=== PATIENT | female | born 1945 | race Caucasian/White ===

== ENCOUNTER → 2018-11-09 | Outpatient (CLI) | payer MEDICARE, OTHER ==
--- NOTE | 2018-11-09 11:09 | Diagnostic Imaging Report ---
EXAM: DXA BONE DENSITY INDICATIONS: SCREENING FOR OSTEOPORSIS COMPARISON: None. FINDINGS: Proximal left femur bone mineral density (BMD) (g/cm2):1.007 Femur T-score (standard deviation relative to young adult mean BMD): 0.5 Femur Z-score (standard deviation relative to age-matched control group):2.3 Lumbar bone mineral density (BMD) (g/cm2):1.090 Lumbar T-score (standard deviation relative to young adult mean BMD): 0.4 Lumbar Z-score (standard deviation relative to age-matched control group):2.8 Change since prior exam (%): Femur:Not applicable. Spine:Not applicable. Change since oldest prior exam (%): Femur:Not applicable. Spine:Not applicable. CONCLUSION: 1. Bone mineral density in the left femur is classified as normal. Fracture risk is not increased. 2. Bone mineral density in the spine is classified as normal. Fracture risk is not increased. World Health Organization Classification: *The Z-score is provided for informational purposes. The T-score is preferable for clinical decisions. When comparing exams, a change of >4% is considered statistically significant. SUGGESTED RECOMMENDATIONS: Normal & Osteopenia:Consideration should be given to use of calcium supplementation, daily multiple vitamins and adequate exercise, as preventive measures against osteoporosis, if clinically indicated. Osteoporosis & Severe Osteoporosis:In addition to the above, consideration should be given to medical therapy against osteoporosis, if clinically indicated. Av Richards D.O. Dictated by: Av Richards D.O. on 11/09/2018 at 11:19 Electronically approved by: Av Richards D.O. on 11/09/2018 at 11:19
== END ==
LOC: DX 10:04
PROVIDERS: ATTEND Family Medicine
DX: Z13.820 Encounter for screening for osteoporosis (principal)
CPT/HCPCS: 77080